=== PATIENT | female | born 1935 | race Caucasian/White ===

== ENCOUNTER 2021-02-04 15:42 | Inpatient (IN) | payer MEDICARE, BC ==
[2021-02-04] MEDS ORDERED: Ondansetron PF 4 MG/2 ML Vial IVP PRN (19:37)
[2021-02-04] MEDS ORDERED: hydrALAZINE 20 MG/ML VIAL SLOW IVP PRN (19:38)
[2021-02-04] MEDS ORDERED: Hydrocortisone Acetate 25 MG Suppository PR PRN (19:39)
[2021-02-04] MEDS ORDERED: Dextrose 50% Abboject 50 ML SYRINGE IVP PRN (19:45)
[2021-02-04] MEDS ORDERED: Dextrose 5% in Water 1,000 ML IV PRN (19:45)
[2021-02-04 21:11] VITALS: BMI 28.7
[2021-02-04] MEDS: Latanoprost 0.005% Ophth Soln 2.5 ml Bottle EA EYE SCH (22:53)
[2021-02-04] MEDS: Senokot S 8.6-50 MG TAB PO SCH (22:54)
[2021-02-04] MEDS: Calcium Carbonate 600 MG + Vit D TAB PO SCH (22:55)
[2021-02-04] MEDS: Atorvastatin Calcium 10 MG TAB PO SCH (22:55)
[2021-02-04] MEDS: Montelukast Sodium 10 mg Tablet PO SCH (22:55)
[2021-02-04] MEDS: Apixaban 2.5 MG TAB PO SCH (22:56)
[2021-02-05] MEDS: HumaLOG 300 UNITS/3 ML VIAL SC PRN ×3 (10:04→18:04)
[2021-02-05] MEDS: Polyethylene Glycol 3350 17 GM Packet PO SCH (10:09)
[2021-02-05] MEDS: Glimepiride 2 MG TAB PO SCH ×2 (10:11→18:04)
[2021-02-05] MEDS: Amlodipine 10 MG TAB PO SCH (10:11)
[2021-02-05] MEDS: Apixaban 2.5 MG TAB PO SCH ×2 (10:11→21:16)
[2021-02-05] MEDS: Albuterol 200 PUFF (6.7GM INHALER) INH PRN (21:14)
[2021-02-05] MEDS: Calcium Carbonate 600 MG + Vit D TAB PO SCH (21:15)
[2021-02-05] MEDS: Montelukast Sodium 10 mg Tablet PO SCH (21:16)
[2021-02-05] MEDS: Atorvastatin Calcium 10 MG TAB PO SCH (21:16)
[2021-02-05] MEDS: Senokot S 8.6-50 MG TAB PO SCH (21:16)
[2021-02-05] MEDS: Latanoprost 0.005% Ophth Soln 2.5 ml Bottle EA EYE SCH (21:18)
[2021-02-05] MEDS ORDERED: ALPRAZolam 0.5 MG TAB PO PRN (22:33)
[2021-02-06] MEDS: Polyethylene Glycol 3350 17 GM Packet PO SCH (09:29)
[2021-02-06] MEDS: Amlodipine 10 MG TAB PO SCH (10:21)
[2021-02-06] MEDS: Glimepiride 2 MG TAB PO SCH ×2 (10:22→17:49)
[2021-02-06] MEDS: Apixaban 2.5 MG TAB PO SCH ×2 (10:22→21:54)
[2021-02-06] MEDS: HumaLOG 300 UNITS/3 ML VIAL SC PRN ×2 (10:23→15:06)
[2021-02-06] MEDS: Acetaminophen 325 MG TAB PO PRN (15:05)
[2021-02-06] MEDS: Senokot S 8.6-50 MG TAB PO SCH (21:54)
[2021-02-06] MEDS: Calcium Carbonate 600 MG + Vit D TAB PO SCH (21:54)
[2021-02-06] MEDS: Montelukast Sodium 10 mg Tablet PO SCH (21:54)
[2021-02-06] MEDS: Atorvastatin Calcium 10 MG TAB PO SCH (21:54)
[2021-02-06] MEDS: Latanoprost 0.005% Ophth Soln 2.5 ml Bottle EA EYE SCH (21:54)
[2021-02-07 05:07] LABS: Hemoglobin 11.1 g/dL (12.0-16.0); Platelet Count 199 thou/uL (130-400)
[2021-02-07] MEDS: Albuterol 200 PUFF (6.7GM INHALER) INH PRN (08:44)
[2021-02-07] MEDS: Apixaban 2.5 MG TAB PO SCH ×2 (08:44→20:31)
[2021-02-07] MEDS: Amlodipine 10 MG TAB PO SCH (08:45)
[2021-02-07] MEDS: Glimepiride 2 MG TAB PO SCH ×2 (08:45→16:15)
[2021-02-07] MEDS: HumaLOG 300 UNITS/3 ML VIAL SC PRN ×2 (08:46→14:02)
[2021-02-07] MEDS: Polyethylene Glycol 3350 17 GM Packet PO SCH (08:46)
[2021-02-07] MEDS ORDERED: cloNIDine 0.1 MG TAB PO SCH (19:00)
[2021-02-07] MEDS: Montelukast Sodium 10 mg Tablet PO SCH (20:31)
[2021-02-07] MEDS: Senokot S 8.6-50 MG TAB PO SCH (20:31)
[2021-02-07] MEDS: Calcium Carbonate 600 MG + Vit D TAB PO SCH (20:31)
[2021-02-07] MEDS: Atorvastatin Calcium 10 MG TAB PO SCH (20:31)
[2021-02-07] MEDS: Latanoprost 0.005% Ophth Soln 2.5 ml Bottle EA EYE SCH (20:32)
[2021-02-07] MEDS: ALPRAZolam 0.5 MG TAB PO PRN (20:32)
[2021-02-08] MEDS: Glimepiride 2 MG TAB PO SCH ×2 (08:28→16:24)
[2021-02-08] MEDS: Amlodipine 10 MG TAB PO SCH (08:28)
[2021-02-08] MEDS: Apixaban 2.5 MG TAB PO SCH ×2 (08:29→21:15)
[2021-02-08] MEDS: Polyethylene Glycol 3350 17 GM Packet PO SCH (08:29)
[2021-02-08] MEDS: HumaLOG 300 UNITS/3 ML VIAL SC PRN ×3 (09:30→21:25)
[2021-02-08] MEDS: Calcium Carbonate 600 MG + Vit D TAB PO SCH (21:15)
[2021-02-08] MEDS: Montelukast Sodium 10 mg Tablet PO SCH (21:15)
[2021-02-08] MEDS: Senokot S 8.6-50 MG TAB PO SCH (21:16)
[2021-02-08] MEDS: Atorvastatin Calcium 10 MG TAB PO SCH (21:16)
[2021-02-08] MEDS: Latanoprost 0.005% Ophth Soln 2.5 ml Bottle EA EYE SCH (21:16)
[2021-02-09] MEDS: Amlodipine 10 MG TAB PO SCH (08:21)
[2021-02-09] MEDS: HumaLOG 300 UNITS/3 ML VIAL SC PRN ×3 (08:22→21:54)
[2021-02-09] MEDS: Albuterol 200 PUFF (6.7GM INHALER) INH PRN (08:22)
[2021-02-09] MEDS: Apixaban 2.5 MG TAB PO SCH ×2 (08:22→21:44)
[2021-02-09] MEDS: Glimepiride 2 MG TAB PO SCH ×2 (08:22→16:51)
[2021-02-09] MEDS: Polyethylene Glycol 3350 17 GM Packet PO SCH (10:57)
[2021-02-09] MEDS: Montelukast Sodium 10 mg Tablet PO SCH (21:44)
[2021-02-09] MEDS: Atorvastatin Calcium 10 MG TAB PO SCH (21:44)
[2021-02-09] MEDS: Senokot S 8.6-50 MG TAB PO SCH (21:44)
[2021-02-09] MEDS: Calcium Carbonate 600 MG + Vit D TAB PO SCH (21:44)
[2021-02-09] MEDS: Latanoprost 0.005% Ophth Soln 2.5 ml Bottle EA EYE SCH (21:53)
[2021-02-09] MEDS: Acetaminophen 325 MG TAB PO PRN (22:03)
[2021-02-10 05:33] LABS: Hemoglobin 10.9 g/dL (12.0-16.0); Platelet Count 206 thou/uL (130-400)
[2021-02-10] MEDS: Glimepiride 2 MG TAB PO SCH ×2 (10:07→16:39)
[2021-02-10] MEDS: Apixaban 2.5 MG TAB PO SCH ×2 (10:07→22:02)
[2021-02-10] MEDS: Polyethylene Glycol 3350 17 GM Packet PO SCH (10:08)
[2021-02-10] MEDS: Amlodipine 10 MG TAB PO SCH (10:08)
[2021-02-10] MEDS: HumaLOG 300 UNITS/3 ML VIAL SC PRN ×3 (14:21→22:01)
[2021-02-10] MEDS: Calcium Carbonate 600 MG + Vit D TAB PO SCH (22:02)
[2021-02-10] MEDS: Montelukast Sodium 10 mg Tablet PO SCH (22:02)
[2021-02-10] MEDS: Atorvastatin Calcium 10 MG TAB PO SCH (22:02)
[2021-02-10] MEDS: Senokot S 8.6-50 MG TAB PO SCH (22:02)
[2021-02-10] MEDS: Latanoprost 0.005% Ophth Soln 2.5 ml Bottle EA EYE SCH (22:03)
[2021-02-11] MEDS: Polyethylene Glycol 3350 17 GM Packet PO SCH (10:00)
[2021-02-11] MEDS: Amlodipine 10 MG TAB PO SCH (10:58)
[2021-02-11] MEDS: Glimepiride 2 MG TAB PO SCH ×2 (10:58→16:17)
[2021-02-11] MEDS: Apixaban 2.5 MG TAB PO SCH ×2 (10:59→21:36)
[2021-02-11] MEDS: HumaLOG 300 UNITS/3 ML VIAL SC PRN ×2 (11:00→13:15)
[2021-02-11] MEDS: Ondansetron ODT 4 MG TAB PO PRN (21:34)
[2021-02-11] MEDS: Montelukast Sodium 10 mg Tablet PO SCH (21:35)
[2021-02-11] MEDS: Calcium Carbonate 600 MG + Vit D TAB PO SCH (21:35)
[2021-02-11] MEDS: Atorvastatin Calcium 10 MG TAB PO SCH (21:35)
[2021-02-11] MEDS: Acetaminophen 325 MG TAB PO PRN (21:36)
[2021-02-11] MEDS: Latanoprost 0.005% Ophth Soln 2.5 ml Bottle EA EYE SCH (21:39)
[2021-02-11] MEDS: Senokot S 8.6-50 MG TAB PO SCH (21:40)
[2021-02-12] MEDS: Glimepiride 2 MG TAB PO SCH ×2 (08:52→17:29)
[2021-02-12] MEDS: Apixaban 2.5 MG TAB PO SCH ×2 (08:52→20:45)
[2021-02-12] MEDS: Amlodipine 10 MG TAB PO SCH (08:53)
[2021-02-12] MEDS: HumaLOG 300 UNITS/3 ML VIAL SC PRN ×3 (08:53→17:31)
[2021-02-12] MEDS: Polyethylene Glycol 3350 17 GM Packet PO SCH (20:16)
[2021-02-12] MEDS: Montelukast Sodium 10 mg Tablet PO SCH (20:44)
[2021-02-12] MEDS: Atorvastatin Calcium 10 MG TAB PO SCH (20:44)
[2021-02-12] MEDS: Senokot S 8.6-50 MG TAB PO SCH (20:45)
[2021-02-12] MEDS: Calcium Carbonate 600 MG + Vit D TAB PO SCH (20:45)
[2021-02-12] MEDS: Latanoprost 0.005% Ophth Soln 2.5 ml Bottle EA EYE SCH ×2 (20:45→20:52)
[2021-02-13 09:08] LABS: Hemoglobin 10.7 g/dL (12.0-16.0); Platelet Count 174 thou/uL (130-400)
[2021-02-13] MEDS: Glimepiride 2 MG TAB PO SCH ×2 (10:12→17:22)
[2021-02-13] MEDS: Apixaban 2.5 MG TAB PO SCH ×2 (10:13→21:08)
[2021-02-13] MEDS: HumaLOG 300 UNITS/3 ML VIAL SC PRN ×3 (10:13→17:22)
[2021-02-13] MEDS: Amlodipine 10 MG TAB PO SCH (10:13)
[2021-02-13] MEDS: Polyethylene Glycol 3350 17 GM Packet PO SCH (10:16)
[2021-02-13] MEDS: Albuterol 200 PUFF (6.7GM INHALER) INH PRN (11:24)
[2021-02-13] MEDS: Ondansetron ODT 4 MG TAB PO PRN (18:13)
[2021-02-13] MEDS: Montelukast Sodium 10 mg Tablet PO SCH (21:08)
[2021-02-13] MEDS: Atorvastatin Calcium 10 MG TAB PO SCH (21:08)
[2021-02-13] MEDS: Senokot S 8.6-50 MG TAB PO SCH (21:09)
[2021-02-13] MEDS: Calcium Carbonate 600 MG + Vit D TAB PO SCH (21:10)
[2021-02-14] MEDS: Glimepiride 2 MG TAB PO SCH ×2 (08:44→17:54)
[2021-02-14] MEDS: Amlodipine 10 MG TAB PO SCH (08:45)
[2021-02-14] MEDS: Apixaban 2.5 MG TAB PO SCH ×2 (08:45→20:30)
[2021-02-14] MEDS: Polyethylene Glycol 3350 17 GM Packet PO SCH (08:47)
[2021-02-14] MEDS: HumaLOG 300 UNITS/3 ML VIAL SC PRN ×4 (08:51→20:29)
[2021-02-14] MEDS: Ondansetron ODT 4 MG TAB PO PRN (16:25)
[2021-02-14] MEDS: Albuterol 200 PUFF (6.7GM INHALER) INH PRN (17:44)
[2021-02-14] MEDS: Senokot S 8.6-50 MG TAB PO SCH (20:30)
[2021-02-14] MEDS: Montelukast Sodium 10 mg Tablet PO SCH (20:30)
[2021-02-14] MEDS: Atorvastatin Calcium 10 MG TAB PO SCH (20:30)
[2021-02-14] MEDS: Latanoprost 0.005% Ophth Soln 2.5 ml Bottle EA EYE SCH (20:32)
[2021-02-14] MEDS: Calcium Carbonate 600 MG + Vit D TAB PO SCH (20:33)
[2021-02-15] MEDS: Ondansetron ODT 4 MG TAB PO PRN ×2 (08:02→14:34)
[2021-02-15] MEDS: Amlodipine 10 MG TAB PO SCH (10:13)
[2021-02-15] MEDS: Polyethylene Glycol 3350 17 GM Packet PO SCH (10:13)
[2021-02-15] MEDS: Apixaban 2.5 MG TAB PO SCH ×2 (10:14→21:10)
[2021-02-15] MEDS: Glimepiride 2 MG TAB PO SCH ×2 (10:14→17:36)
[2021-02-15] MEDS: HumaLOG 300 UNITS/3 ML VIAL SC PRN ×3 (10:18→17:36)
[2021-02-15 11:20] LABS: ALT (SGPT) Less than 7 U/L (8-55); AST (SGOT) 16 U/L (5-34); Albumin 2.7 g/dL (3.4-4.8); Alkaline Phosphatase 101 U/L (40-110); Anion Gap 13 mmol/L (10-20); BUN (Urea Nitrogen) 7 mg/dL (9.8-20.1); Bilirubin, Total 0.6 mg/dL (0.2-1.2); Calc. Creatinine Clearance 65 mL/min (70-130); Calcium 8.6 mg/dL (7.8-10.44); Carbon Dioxide 31 mmol/L (23-31); Chloride 96 mmol/L (98-107); Globulin 2.7 g/dL (2.4-3.5); Glucose 260 mg/dL (83-110); Protein, Total 5.4 g/dL (5.8-8.1); Sodium 137 mmol/L (136-145)
[2021-02-15 11:50] LABS: Potassium 2.9 mmol/L (3.5-5.1)
[2021-02-15] MEDS ORDERED: Potassium Chloride 20 MEQ TAB PO SCH (12:30)
[2021-02-15] MEDS: Acetaminophen 325 MG TAB PO PRN (17:40)
[2021-02-15] MEDS: Albuterol 200 PUFF (6.7GM INHALER) INH PRN (17:41)
[2021-02-15] MEDS: Senokot S 8.6-50 MG TAB PO SCH (21:09)
[2021-02-15] MEDS: Calcium Carbonate 600 MG + Vit D TAB PO SCH (21:10)
[2021-02-15] MEDS: Montelukast Sodium 10 mg Tablet PO SCH (21:10)
[2021-02-15] MEDS: Atorvastatin Calcium 10 MG TAB PO SCH (21:10)
[2021-02-15] MEDS: Potassium Chloride 20 MEQ TAB PO SCH (21:10)
[2021-02-15] MEDS: Latanoprost 0.005% Ophth Soln 2.5 ml Bottle EA EYE SCH (21:11)
[2021-02-16 05:33] LABS: Hemoglobin 10.7 g/dL (12.0-16.0); Platelet Count 154 thou/uL (130-400)
[2021-02-16] MEDS: Polyethylene Glycol 3350 17 GM Packet PO SCH (09:56)
[2021-02-16] MEDS: Apixaban 2.5 MG TAB PO SCH ×2 (09:57→20:07)
[2021-02-16] MEDS: Potassium Chloride 20 MEQ TAB PO SCH ×2 (09:59→20:08)
[2021-02-16] MEDS: Amlodipine 10 MG TAB PO SCH (09:59)
[2021-02-16] MEDS: Glimepiride 2 MG TAB PO SCH ×3 (10:00→18:29)
[2021-02-16] MEDS: Albuterol 200 PUFF (6.7GM INHALER) INH PRN (10:01)
[2021-02-16] MEDS: Ondansetron ODT 4 MG TAB PO PRN ×2 (11:15→16:51)
[2021-02-16] MEDS: HumaLOG 300 UNITS/3 ML VIAL SC PRN ×2 (12:24→16:52)
[2021-02-16] MEDS: Montelukast Sodium 10 mg Tablet PO SCH (20:06)
[2021-02-16] MEDS: Senokot S 8.6-50 MG TAB PO SCH (20:07)
[2021-02-16] MEDS: Atorvastatin Calcium 10 MG TAB PO SCH (20:07)
[2021-02-16] MEDS: Calcium Carbonate 600 MG + Vit D TAB PO SCH (20:07)
[2021-02-16] MEDS: Acetaminophen 325 MG TAB PO PRN (20:08)
[2021-02-16] MEDS: Latanoprost 0.005% Ophth Soln 2.5 ml Bottle EA EYE SCH (20:10)
[2021-02-17] MEDS: Ondansetron ODT 4 MG TAB PO PRN ×2 (07:31→14:02)
[2021-02-17] MEDS: Amlodipine 10 MG TAB PO SCH (08:43)
[2021-02-17] MEDS: Apixaban 2.5 MG TAB PO SCH ×2 (08:44→20:16)
[2021-02-17] MEDS: Potassium Chloride 20 MEQ TAB PO SCH ×2 (08:44→20:16)
[2021-02-17] MEDS: Polyethylene Glycol 3350 17 GM Packet PO SCH (08:44)
[2021-02-17] MEDS: Glimepiride 2 MG TAB PO SCH ×2 (08:45→17:46)
[2021-02-17] MEDS: HumaLOG 300 UNITS/3 ML VIAL SC PRN ×3 (08:46→17:46)
[2021-02-17 13:49] LABS: Bilirubin Small (Negative); Blood, Urine Trace (Negative); Clarity Slightly Cloudy (Clear); Glucose, Urine (Dipstick) 100 mg/dL (Negative); Ketone, Urine Trace mg/dL (Negative); Leukocyte Trace (Negative); Nitrite Negative (Negative); Protein, Urine (Dipstick) 100 mg/dL (Neg-Trace); Specific Gravity, Urine 1.015 (1.005-1.030)
[2021-02-17 14:33] LABS: Bacteria/HPF Rare-Few HPF (None Seen); RBC/HPF 0-3 HPF (0-3); Renal Epithelial 0-3 HPF (None Seen); Squamous Epithelial 0-3 HPF (0-3)
[2021-02-17 14:35] LABS: Urine Culture Reflex Yes Yes
[2021-02-17] MEDS: Atorvastatin Calcium 10 MG TAB PO SCH (20:16)
[2021-02-17] MEDS: Montelukast Sodium 10 mg Tablet PO SCH (20:16)
[2021-02-17] MEDS: Senokot S 8.6-50 MG TAB PO SCH (20:16)
[2021-02-17] MEDS: Calcium Carbonate 600 MG + Vit D TAB PO SCH (20:17)
[2021-02-17] MEDS: ALPRAZolam 0.5 MG TAB PO PRN (20:28)
[2021-02-17] MEDS: Latanoprost 0.005% Ophth Soln 2.5 ml Bottle EA EYE SCH (20:29)
[2021-02-18 05:14] LABS: Anion Gap 15 mmol/L (10-20); BUN (Urea Nitrogen) 7 mg/dL (9.8-20.1); Calc. Creatinine Clearance 68 mL/min (70-130); Calcium 9.3 mg/dL (7.8-10.44); Carbon Dioxide 27 mmol/L (23-31); Chloride 95 mmol/L (98-107); Glucose 161 mg/dL (83-110); Potassium 3.6 mmol/L (3.5-5.1); Sodium 133 mmol/L (136-145)
[2021-02-18] MEDS: HumaLOG 300 UNITS/3 ML VIAL SC PRN ×3 (08:07→17:28)
[2021-02-18] MEDS: Polyethylene Glycol 3350 17 GM Packet PO SCH (08:38)
[2021-02-18] MEDS: Potassium Chloride 20 MEQ TAB PO SCH ×2 (08:39→20:04)
[2021-02-18] MEDS: Glimepiride 2 MG TAB PO SCH ×2 (08:40→16:34)
[2021-02-18] MEDS: Apixaban 2.5 MG TAB PO SCH ×2 (08:40→20:04)
[2021-02-18] MEDS: Amlodipine 10 MG TAB PO SCH (08:45)
[2021-02-18] MEDS: Senokot S 8.6-50 MG TAB PO SCH (20:04)
[2021-02-18] MEDS: Montelukast Sodium 10 mg Tablet PO SCH (20:04)
[2021-02-18] MEDS: Calcium Carbonate 600 MG + Vit D TAB PO SCH (20:04)
[2021-02-18] MEDS: Atorvastatin Calcium 10 MG TAB PO SCH (20:05)
[2021-02-18] MEDS: Latanoprost 0.005% Ophth Soln 2.5 ml Bottle EA EYE SCH (20:05)
[2021-02-19 05:08] LABS: Hemoglobin 10.9 g/dL (12.0-16.0); Platelet Count 177 thou/uL (130-400)
[2021-02-19] MEDS: Amlodipine 10 MG TAB PO SCH (09:30)
[2021-02-19] MEDS: Potassium Chloride 20 MEQ TAB PO SCH ×2 (09:30→20:11)
[2021-02-19] MEDS: predniSONE 5 MG TAB PO SCH (09:30)
[2021-02-19] MEDS: Apixaban 2.5 MG TAB PO SCH ×2 (09:30→20:11)
[2021-02-19] MEDS: Glimepiride 2 MG TAB PO SCH ×2 (09:30→17:36)
[2021-02-19] MEDS: Polyethylene Glycol 3350 17 GM Packet PO SCH (09:30)
[2021-02-19] MEDS ORDERED: ALPRAZolam 0.25 MG TAB PO PRN (13:01)
[2021-02-19] MEDS: HumaLOG 300 UNITS/3 ML VIAL SC PRN ×2 (13:17→17:40)
[2021-02-19] MEDS: Ondansetron ODT 4 MG TAB PO PRN (18:25)
[2021-02-19] MEDS: Atorvastatin Calcium 10 MG TAB PO SCH (20:11)
[2021-02-19] MEDS: Latanoprost 0.005% Ophth Soln 2.5 ml Bottle EA EYE SCH (20:11)
[2021-02-19] MEDS: Montelukast Sodium 10 mg Tablet PO SCH (20:11)
[2021-02-19] MEDS: Calcium Carbonate 600 MG + Vit D TAB PO SCH (20:11)
[2021-02-19] MEDS: Mirtazapine 15 MG TAB PO SCH (20:11)
[2021-02-19] MEDS: Senokot S 8.6-50 MG TAB PO SCH (20:11)
[2021-02-19] MEDS ORDERED: ALPRAZolam 0.5 MG TAB ONE (20:16)
[2021-02-19] MEDS: ALPRAZolam 0.5 MG TAB PO PRN (20:19)
[2021-02-20] MEDS: Polyethylene Glycol 3350 17 GM Packet PO SCH (09:28)
[2021-02-20] MEDS: Glimepiride 2 MG TAB PO SCH ×2 (09:31→16:38)
[2021-02-20] MEDS: predniSONE 5 MG TAB PO SCH (09:32)
[2021-02-20] MEDS: Potassium Chloride 20 MEQ TAB PO SCH ×2 (09:34→21:02)
[2021-02-20] MEDS: Amlodipine 10 MG TAB PO SCH (09:35)
[2021-02-20] MEDS: Apixaban 2.5 MG TAB PO SCH ×2 (09:36→21:02)
[2021-02-20] MEDS: HumaLOG 300 UNITS/3 ML VIAL SC PRN ×2 (12:25→16:41)
[2021-02-20] MEDS: Acetaminophen 325 MG TAB PO PRN (16:37)
[2021-02-20] MEDS: Atorvastatin Calcium 10 MG TAB PO SCH (21:01)
[2021-02-20] MEDS: Calcium Carbonate 600 MG + Vit D TAB PO SCH (21:02)
[2021-02-20] MEDS: Mirtazapine 15 MG TAB PO SCH (21:02)
[2021-02-20] MEDS: Latanoprost 0.005% Ophth Soln 2.5 ml Bottle EA EYE SCH (21:03)
[2021-02-20] MEDS: Montelukast Sodium 10 mg Tablet PO SCH (21:03)
[2021-02-20] MEDS: Senokot S 8.6-50 MG TAB PO SCH (21:03)
[2021-02-21] MEDS: Potassium Chloride 20 MEQ TAB PO SCH ×2 (08:16→20:04)
[2021-02-21] MEDS: Polyethylene Glycol 3350 17 GM Packet PO SCH (08:16)
[2021-02-21] MEDS: Apixaban 2.5 MG TAB PO SCH ×2 (08:18→20:03)
[2021-02-21] MEDS: Glimepiride 2 MG TAB PO SCH ×2 (08:18→16:36)
[2021-02-21] MEDS: predniSONE 5 MG TAB PO SCH (08:18)
[2021-02-21] MEDS: Amlodipine 10 MG TAB PO SCH (08:20)
[2021-02-21] MEDS: Albuterol 200 PUFF (6.7GM INHALER) INH PRN (08:24)
[2021-02-21] MEDS: HumaLOG 300 UNITS/3 ML VIAL SC PRN ×4 (08:27→20:33)
[2021-02-21] MEDS: Acetaminophen 325 MG TAB PO PRN (16:33)
[2021-02-21] MEDS: Latanoprost 0.005% Ophth Soln 2.5 ml Bottle EA EYE SCH (20:04)
[2021-02-21] MEDS: Calcium Carbonate 600 MG + Vit D TAB PO SCH (20:04)
[2021-02-21] MEDS: Mirtazapine 15 MG TAB PO SCH (20:04)
[2021-02-21] MEDS: Montelukast Sodium 10 mg Tablet PO SCH (20:04)
[2021-02-21] MEDS: Atorvastatin Calcium 10 MG TAB PO SCH (20:04)
[2021-02-21] MEDS: Senokot S 8.6-50 MG TAB PO SCH (20:04)
[2021-02-22 04:57] LABS: Hemoglobin 11.1 g/dL (12.0-16.0); Platelet Count 256 thou/uL (130-400)
[2021-02-22] MEDS: Polyethylene Glycol 3350 17 GM Packet PO SCH (08:54)
[2021-02-22] MEDS: Amlodipine 10 MG TAB PO SCH (08:56)
[2021-02-22] MEDS: Potassium Chloride 20 MEQ TAB PO SCH ×2 (08:56→20:23)
[2021-02-22] MEDS: Glimepiride 2 MG TAB PO SCH ×2 (08:56→17:20)
[2021-02-22] MEDS: predniSONE 5 MG TAB PO SCH (08:57)
[2021-02-22] MEDS: Apixaban 2.5 MG TAB PO SCH ×2 (08:58→20:23)
[2021-02-22] MEDS: HumaLOG 300 UNITS/3 ML VIAL SC PRN ×3 (09:00→17:21)
[2021-02-22] MEDS: Albuterol 200 PUFF (6.7GM INHALER) INH PRN ×2 (09:02→20:29)
[2021-02-22] MEDS: Mirtazapine 15 MG TAB PO SCH (20:22)
[2021-02-22] MEDS: Montelukast Sodium 10 mg Tablet PO SCH (20:22)
[2021-02-22] MEDS: Atorvastatin Calcium 10 MG TAB PO SCH (20:23)
[2021-02-22] MEDS: Calcium Carbonate 600 MG + Vit D TAB PO SCH (20:23)
[2021-02-22] MEDS: Senokot S 8.6-50 MG TAB PO SCH (20:23)
[2021-02-22] MEDS: Latanoprost 0.005% Ophth Soln 2.5 ml Bottle EA EYE SCH (20:23)
[2021-02-23] MEDS: HumaLOG 300 UNITS/3 ML VIAL SC PRN ×3 (08:50→17:41)
[2021-02-23] MEDS: Glimepiride 2 MG TAB PO SCH ×2 (08:52→17:41)
[2021-02-23] MEDS: predniSONE 5 MG TAB PO SCH (08:53)
[2021-02-23] MEDS: Amlodipine 10 MG TAB PO SCH (08:53)
[2021-02-23] MEDS: Apixaban 2.5 MG TAB PO SCH ×2 (08:54→21:41)
[2021-02-23] MEDS: Polyethylene Glycol 3350 17 GM Packet PO SCH (08:54)
[2021-02-23] MEDS: Potassium Chloride 20 MEQ TAB PO SCH ×2 (08:54→21:40)
[2021-02-23] MEDS: Albuterol 200 PUFF (6.7GM INHALER) INH PRN (08:57)
[2021-02-23] MEDS: Senokot S 8.6-50 MG TAB PO SCH (21:40)
[2021-02-23] MEDS: Montelukast Sodium 10 mg Tablet PO SCH (21:40)
[2021-02-23] MEDS: Mirtazapine 15 MG TAB PO SCH (21:41)
[2021-02-23] MEDS: Calcium Carbonate 600 MG + Vit D TAB PO SCH (21:41)
[2021-02-23] MEDS: Atorvastatin Calcium 10 MG TAB PO SCH (21:41)
[2021-02-23] MEDS: Latanoprost 0.005% Ophth Soln 2.5 ml Bottle EA EYE SCH (21:41)
[2021-02-24] MEDS: Potassium Chloride 20 MEQ TAB PO SCH ×2 (09:30→20:12)
[2021-02-24] MEDS: Glimepiride 2 MG TAB PO SCH ×2 (09:33→17:12)
[2021-02-24] MEDS: Amlodipine 10 MG TAB PO SCH (09:34)
[2021-02-24] MEDS: Apixaban 2.5 MG TAB PO SCH ×2 (09:34→20:14)
[2021-02-24] MEDS: predniSONE 5 MG TAB PO SCH (09:35)
[2021-02-24] MEDS: Polyethylene Glycol 3350 17 GM Packet PO SCH (09:39)
[2021-02-24] MEDS: HumaLOG 300 UNITS/3 ML VIAL SC PRN ×2 (12:25→17:10)
[2021-02-24] MEDS: Atorvastatin Calcium 10 MG TAB PO SCH (20:12)
[2021-02-24] MEDS: Mirtazapine 15 MG TAB PO SCH (20:14)
[2021-02-24] MEDS: Ondansetron ODT 4 MG TAB PO PRN (20:14)
[2021-02-24] MEDS: Senokot S 8.6-50 MG TAB PO SCH (20:14)
[2021-02-24] MEDS: Montelukast Sodium 10 mg Tablet PO SCH (20:14)
[2021-02-24] MEDS: Calcium Carbonate 600 MG + Vit D TAB PO SCH (20:15)
[2021-02-24] MEDS: Latanoprost 0.005% Ophth Soln 2.5 ml Bottle EA EYE SCH (20:16)
[2021-02-25 04:53] LABS: Hemoglobin 11.1 g/dL (12.0-16.0); Platelet Count 257 thou/uL (130-400)
[2021-02-25] MEDS: Acetaminophen 325 MG TAB PO PRN (08:54)
[2021-02-25] MEDS: Apixaban 2.5 MG TAB PO SCH ×2 (08:55→20:51)
[2021-02-25] MEDS: Glimepiride 2 MG TAB PO SCH ×2 (08:55→16:52)
[2021-02-25] MEDS: Amlodipine 10 MG TAB PO SCH (08:56)
[2021-02-25] MEDS: predniSONE 5 MG TAB PO SCH (08:56)
[2021-02-25] MEDS: Potassium Chloride 20 MEQ TAB PO SCH ×2 (08:56→20:50)
[2021-02-25] MEDS: Polyethylene Glycol 3350 17 GM Packet PO SCH (09:00)
[2021-02-25] MEDS: HumaLOG 300 UNITS/3 ML VIAL SC PRN ×4 (09:01→20:57)
[2021-02-25] MEDS: Atorvastatin Calcium 10 MG TAB PO SCH (20:50)
[2021-02-25] MEDS: Montelukast Sodium 10 mg Tablet PO SCH (20:50)
[2021-02-25] MEDS: Senokot S 8.6-50 MG TAB PO SCH (20:50)
[2021-02-25] MEDS: Mirtazapine 15 MG TAB PO SCH (20:50)
[2021-02-25] MEDS: ALPRAZolam 0.5 MG TAB PO PRN (20:51)
[2021-02-25] MEDS: Latanoprost 0.005% Ophth Soln 2.5 ml Bottle EA EYE SCH (20:54)
[2021-02-25] MEDS: Calcium Carbonate 600 MG + Vit D TAB PO SCH (20:55)
[2021-02-26] MEDS: Cefuroxime 500 MG TAB PO SCH ×2 (06:24→17:44)
[2021-02-26] MEDS: Glimepiride 2 MG TAB PO SCH ×2 (10:40→17:45)
[2021-02-26] MEDS: Potassium Chloride 20 MEQ TAB PO SCH ×2 (10:41→20:47)
[2021-02-26] MEDS: predniSONE 5 MG TAB PO SCH (10:41)
[2021-02-26] MEDS: Amlodipine 10 MG TAB PO SCH (10:42)
[2021-02-26] MEDS: Apixaban 2.5 MG TAB PO SCH ×2 (10:42→20:48)
[2021-02-26] MEDS: Polyethylene Glycol 3350 17 GM Packet PO SCH (10:51)
[2021-02-26] MEDS: HumaLOG 300 UNITS/3 ML VIAL SC PRN ×3 (12:15→20:53)
[2021-02-26] MEDS: Calcium Carbonate 600 MG + Vit D TAB PO SCH (20:47)
[2021-02-26] MEDS: Montelukast Sodium 10 mg Tablet PO SCH (20:48)
[2021-02-26] MEDS: Senokot S 8.6-50 MG TAB PO SCH (20:48)
[2021-02-26] MEDS: Mirtazapine 15 MG TAB PO SCH (20:48)
[2021-02-26] MEDS: Atorvastatin Calcium 10 MG TAB PO SCH (20:48)
[2021-02-26] MEDS: ALPRAZolam 0.5 MG TAB PO PRN (20:48)
[2021-02-26] MEDS: Latanoprost 0.005% Ophth Soln 2.5 ml Bottle EA EYE SCH (20:50)
[2021-02-27] MEDS: Cefuroxime 500 MG TAB PO SCH ×2 (06:05→17:12)
[2021-02-27] MEDS: Polyethylene Glycol 3350 17 GM Packet PO SCH (09:14)
[2021-02-27] MEDS: Acetaminophen 325 MG TAB PO PRN ×2 (09:15→22:32)
[2021-02-27] MEDS: predniSONE 5 MG TAB PO SCH (09:16)
[2021-02-27] MEDS: Amlodipine 10 MG TAB PO SCH (09:16)
[2021-02-27] MEDS: Glimepiride 2 MG TAB PO SCH ×2 (09:16→16:52)
[2021-02-27] MEDS: Apixaban 2.5 MG TAB PO SCH ×2 (09:17→20:58)
[2021-02-27] MEDS: Potassium Chloride 20 MEQ TAB PO SCH ×2 (09:17→20:57)
[2021-02-27] MEDS: HumaLOG 300 UNITS/3 ML VIAL SC PRN ×3 (09:19→16:58)
[2021-02-27] MEDS: Calcium Carbonate 600 MG + Vit D TAB PO SCH (20:57)
[2021-02-27] MEDS: Senokot S 8.6-50 MG TAB PO SCH (20:58)
[2021-02-27] MEDS: Montelukast Sodium 10 mg Tablet PO SCH (20:58)
[2021-02-27] MEDS: Mirtazapine 15 MG TAB PO SCH (20:58)
[2021-02-27] MEDS: Atorvastatin Calcium 10 MG TAB PO SCH (20:58)
[2021-02-27] MEDS: ALPRAZolam 0.5 MG TAB PO PRN (20:59)
[2021-02-27] MEDS: Latanoprost 0.005% Ophth Soln 2.5 ml Bottle EA EYE SCH (21:02)
[2021-02-28] MEDS: Cefuroxime 500 MG TAB PO SCH ×2 (05:51→16:59)
[2021-02-28 06:10] LABS: Hemoglobin 11.1 g/dL (12.0-16.0); Platelet Count 248 thou/uL (130-400)
[2021-02-28] MEDS: Glimepiride 2 MG TAB PO SCH ×2 (09:22→16:59)
[2021-02-28] MEDS: Potassium Chloride 20 MEQ TAB PO SCH ×2 (09:24→20:52)
[2021-02-28] MEDS: Amlodipine 10 MG TAB PO SCH (09:25)
[2021-02-28] MEDS: predniSONE 5 MG TAB PO SCH (09:25)
[2021-02-28] MEDS: Apixaban 2.5 MG TAB PO SCH ×2 (09:25→20:51)
[2021-02-28] MEDS: Polyethylene Glycol 3350 17 GM Packet PO SCH (09:25)
[2021-02-28] MEDS: Acetaminophen 325 MG TAB PO PRN (09:30)
[2021-02-28] MEDS: HumaLOG 300 UNITS/3 ML VIAL SC PRN ×3 (09:43→17:00)
[2021-02-28] MEDS: Montelukast Sodium 10 mg Tablet PO SCH (20:49)
[2021-02-28] MEDS: Atorvastatin Calcium 10 MG TAB PO SCH (20:50)
[2021-02-28] MEDS: Senokot S 8.6-50 MG TAB PO SCH ×2 (20:52→20:53)
[2021-02-28] MEDS: Latanoprost 0.005% Ophth Soln 2.5 ml Bottle EA EYE SCH (20:54)
[2021-02-28] MEDS: Calcium Carbonate 600 MG + Vit D TAB PO SCH (20:55)
[2021-02-28] MEDS: Mirtazapine 15 MG TAB PO SCH (21:00)
[2021-03-01] MEDS: Cefuroxime 500 MG TAB PO SCH ×2 (05:25→18:32)
[2021-03-01] MEDS: Amlodipine 10 MG TAB PO SCH (09:18)
[2021-03-01] MEDS: Apixaban 2.5 MG TAB PO SCH ×2 (09:18→20:25)
[2021-03-01] MEDS: Glimepiride 2 MG TAB PO SCH ×2 (09:18→17:24)
[2021-03-01] MEDS: Potassium Chloride 20 MEQ TAB PO SCH ×2 (09:19→20:26)
[2021-03-01] MEDS: predniSONE 5 MG TAB PO SCH (09:19)
[2021-03-01] MEDS: HumaLOG 300 UNITS/3 ML VIAL SC PRN ×4 (09:20→20:47)
[2021-03-01] MEDS: Polyethylene Glycol 3350 17 GM Packet PO SCH (09:20)
[2021-03-01] MEDS: Senokot S 8.6-50 MG TAB PO SCH (20:25)
[2021-03-01] MEDS: Montelukast Sodium 10 mg Tablet PO SCH (20:25)
[2021-03-01] MEDS: Atorvastatin Calcium 10 MG TAB PO SCH (20:25)
[2021-03-01] MEDS: Mirtazapine 15 MG TAB PO SCH (20:26)
[2021-03-01] MEDS: Calcium Carbonate 600 MG + Vit D TAB PO SCH (20:26)
[2021-03-01] MEDS: Latanoprost 0.005% Ophth Soln 2.5 ml Bottle EA EYE SCH (20:26)
[2021-03-01] MEDS: ALPRAZolam 0.5 MG TAB PO PRN (20:27)
[2021-03-02] MEDS: Acetaminophen 325 MG TAB PO PRN (04:52)
[2021-03-02] MEDS: Cefuroxime 500 MG TAB PO SCH ×2 (06:05→18:00)
[2021-03-02] MEDS: Polyethylene Glycol 3350 17 GM Packet PO SCH (08:31)
[2021-03-02] MEDS: Amlodipine 10 MG TAB PO SCH (08:31)
[2021-03-02] MEDS: predniSONE 5 MG TAB PO SCH (08:32)
[2021-03-02] MEDS: Apixaban 2.5 MG TAB PO SCH ×2 (08:32→20:31)
[2021-03-02] MEDS: Glimepiride 2 MG TAB PO SCH ×2 (08:33→18:00)
[2021-03-02] MEDS: Potassium Chloride 20 MEQ TAB PO SCH ×2 (08:33→20:31)
[2021-03-02] MEDS: HumaLOG 300 UNITS/3 ML VIAL SC PRN ×4 (08:34→20:42)
[2021-03-02 17:34] VITALS: TEMP 98.3
[2021-03-02] MEDS: Atorvastatin Calcium 10 MG TAB PO SCH (20:28)
[2021-03-02] MEDS: Montelukast Sodium 10 mg Tablet PO SCH (20:28)
[2021-03-02] MEDS: Mirtazapine 15 MG TAB PO SCH (20:30)
[2021-03-02] MEDS: Calcium Carbonate 600 MG + Vit D TAB PO SCH (20:31)
[2021-03-02] MEDS: Latanoprost 0.005% Ophth Soln 2.5 ml Bottle EA EYE SCH (20:32)
[2021-03-02] MEDS: ALPRAZolam 0.5 MG TAB PO PRN (20:36)
[2021-03-03 05:34] LABS: Hemoglobin 11.2 g/dL (12.0-16.0); Platelet Count 222 thou/uL (130-400)
[2021-03-03] MEDS: Cefuroxime 500 MG TAB PO SCH ×2 (06:01→18:03)
[2021-03-03] MEDS: Potassium Chloride 20 MEQ TAB PO SCH (09:59)
[2021-03-03] MEDS: Glimepiride 2 MG TAB PO SCH ×2 (10:00→17:14)
[2021-03-03] MEDS: Amlodipine 10 MG TAB PO SCH (10:00)
[2021-03-03] MEDS: predniSONE 5 MG TAB PO SCH (10:01)
[2021-03-03] MEDS: Apixaban 2.5 MG TAB PO SCH (10:02)
[2021-03-03] MEDS: HumaLOG 300 UNITS/3 ML VIAL SC PRN ×2 (10:02→12:45)
[2021-03-03] MEDS: Polyethylene Glycol 3350 17 GM Packet PO SCH (10:02)
[2021-03-03 10:12] VITALS: BP 118/79
[2021-03-03] MEDS ORDERED: FLU VACC QS2021-22(65YR UP)/PF 240 MCG/0.7 ML SYRINGE IM ONE (17:00)
== END 2021-03-03 18:20 | disposition home or self-care (01) | DRG 948 ==
LOC: BURMED 18:49
PROVIDERS: ADMIT Family Medicine; ATTEND Family Medicine
DX: R53.1 Weakness (principal); E87.1 Hypo-osmolality and hyponatremia; I13.0 Hypertensive heart and chronic kidney disease with heart failure and stage 1 through stage 4 chronic kidney disease, or unspecified chronic kidney disease; I42.9 Cardiomyopathy, unspecified; J96.10 Chronic respiratory failure, unspecified whether with hypoxia or hypercapnia; I50.9 Heart failure, unspecified; N18.9 Chronic kidney disease, unspecified; I48.91 Unspecified atrial fibrillation; J44.9 Chronic obstructive pulmonary disease, unspecified; Z60.2 Problems related to living alone; E11.22 Type 2 diabetes mellitus with diabetic chronic kidney disease; E78.5 Hyperlipidemia, unspecified; E11.65 Type 2 diabetes mellitus with hyperglycemia; F32.A Depression, unspecified; Z86.718 Personal history of other venous thrombosis and embolism; Z86.16 Personal history of COVID-19; Z79.01 Long term (current) use of anticoagulants; Z99.3 Dependence on wheelchair; Z99.81 Dependence on supplemental oxygen; Z90.49 Acquired absence of other specified parts of digestive tract; Z90.710 Acquired absence of both cervix and uterus; Z88.0 Allergy status to penicillin; Z88.6 Allergy status to analgesic agent; Z88.8 Allergy status to other drugs, medicaments and biological substances; Z88.5 Allergy status to narcotic agent; Z79.899 Other long term (current) drug therapy; Z79.4 Long term (current) use of insulin; Z79.52 Long term (current) use of systemic steroids
CPT/HCPCS: 36415; 36416; 80048; 80053; 81001; 82565; 85014; 85018; 85049; 87086; 90471; 90662; G0008; J1815; J7512; Q0162